=== PATIENT | male | born 1995 | race Caucasian/White ===

== ENCOUNTER 2017-12-07 17:57 | Emergency (ER) | payer MEDICAID, OTHER ==
[2017-12-07] MEDS: LEVALBUTEROL (NEB) 1.25 MG/0.5 ML AMP HHN ×2 (20:59→23:27)
[2017-12-07] MEDS: METHYLPREDNISOLONE 125 MG INJ IM (21:00)
[2017-12-07] MEDS: ONDANSETRON (ODT) 4 MG TAB ODT (23:27)
[2017-12-07] MEDS: LORAZEPAM 1 MG TAB PO (23:27)
== END 2017-12-07 23:39 | disposition home or self-care (01) ==
LOC: FTE 17:57
DX: J20.9 Acute bronchitis, unspecified (principal); F41.9 Anxiety disorder, unspecified; R05 Cough
CPT/HCPCS: 71046; 87400; 94664; 96372; 99284-25

== ENCOUNTER 2018-12-23 16:23 | Emergency (ER) | payer SELFPAY, MEDICAID | END 2018-12-23 20:42 | disposition left against medical advice (07) | LOC: FTE 16:23 | DX: Z53.21 Procedure and treatment not carried out due to patient leaving prior to being seen by health care provider (principal) ==